=== PATIENT | female | born 1965 | race Caucasian/White ===

== ENCOUNTER → 2023-12-21 10:46 | Outpatient (REF) | payer OTHER, SELFPAY | LOC: WDC 10:46 | PROVIDERS: ATTENDING PHYSICIAN Obstetrics & Gynecology; FAMILY PHYSICIAN Student in an Organized Health Care Education/Training Program | DX: Z12.31 Encounter for screening mammogram for malignant neoplasm of breast (principal) | CPT/HCPCS: 77063; 77067 ==

== ENCOUNTER 2024-04-09 10:14 | Emergency (ER) | payer OTHER, SELFPAY ==
[2024-04-09 10:38] VITALS: BP 127/80
--- NOTE | 2024-04-09 12:17 | ED.GENMED ---
History of Present Illness
General
Chief Complaint: Fall
Source: patient and family
Exam Limitations: none
Time Seen by Provider: 04/09/24 11:18
Nursing documentation reviewed up to this point in time: agreed with
History of Present Illness
History of Present Illness:
58-year-old female past medical history of spinal muscular atrophy presenting to the emergency department today with concerns after a fall yesterday and ongoing discomfort to the right escamilla region. Denies numbness weakness or additional concerns.
Past History
Past History
ED Past Medical History: Other (Muscle weakness of undetermined etiology)
ED Past Surgical History: Orthopedic
Social History
Tobacco: Non-smoker
Review of Systems
Review of Systems
Allergies reviewed?: Yes
All Other Systems: ROS reviewed and negative except as documented in HPI and ROS
Phy Exam
Physical Exam
Physical Exam:
GENERAL: Alert , in no apparent distress
EYE: pupils equal and reactive
NECK: Supple, no significant adenopathy.
ENT: o/p clr, mmm.
CARDIAC: Regular rate and rhythm .
LUNGS: Clear breath sounds bilaterally, no acute respiratory distress, no wheezes/rales/rhonchi
ABDOMEN: Soft, without focal tenderness, no r/g, no cvat
NEUROLOGICAL: Alert and oriented, no focal neuro deficits
SKIN: Warm and dry, skin intact.
MUSCULOSKELETAL: Tenderness to the right lateral proximal escamilla region without overlying skin changes no redness or warmth good range of motion of the ankle and knee. No edema, well perfused.
PSYCH: Normal and appropriate interaction.
Course
Orders/Labs/Results
Orders:
Orders
04/09/24 11:37
CR Leg Tibia/fibula Right 2 Vw Urgent
Comment:
Reason For Exam: right escamilla pain
04/09/24 12:11
CR Ankle - Right Min 3 Views * Urgent
Reason For Exam: WEIGHT BEARING, proximal fib fx
Vital Signs
Initial and Last Documented VS:
Initial Vital Signs
Temp Pulse Resp BP Pulse Ox
100.3 F 87 17 127/80 99
04/09/24 10:38 04/09/24 10:38 04/09/24 10:38 04/09/24 10:38 04/09/24 10:38
Last Documented Vital Signs
Temp Pulse Resp BP Pulse Ox
100.3 F 87 17 127/80 99
04/09/24 10:38 04/09/24 10:38 04/09/24 10:38 04/09/24 10:38 04/09/24 10:38
MDM/Problems Addressed
MDM/Problems Addressed:
58-year-old female presenting to the emergency department today after ground-level fall yesterday. She claims that she fell secondary to her spinal muscular atrophy which does happen quite regularly. Denies any lightheadedness or additional
concerns does have ongoing pain to the right lateral ecsamilla region no numbness weakness or additional concerns or injuries. No head trauma no neck pain. X-ray performed that showed a proximal fibular fracture. Case was discussed with orthopedics
recommending weightbearing as [place]. We additionally got ankle films to ensure no associated ankle injury which was normal. Otherwise weightbearing as tolerated stable for discharge. Given information for follow-up.
*Critical Care Note
Total Time (30-74mins, 75-104mins- exclusive of procedures): Not Applicable
ED Attending Note
-
Portions of this chart may have been created with voice recognition software.� Occasional wrong word or��sound alike� substitutions may have occurred due to the inherent limitations of voice recognition software.
Discharge Plan
Departure
Patient Disposition: Home (Routine Discharge)
Date of Disposition: 04/09/24
Time of Disposition: 12:43
Patient with high blood pressure during this ER visit?: No
Condition: Good
Covid-19: Not Applicable
Discharge Problem:
Fracture of proximal end of fibula
Instructions: Lower leg fracture
Prescriptions:
No Action
Soothe Eye Drops For Contacts
1 drp BOTH EYES DAILYPRN PRN (Reason: dry eyes)
hydrocodone-acetaminophen [Vicodin] 1 EACH tablet
1 ea PO Q4H PRN (Reason: fracture pain) Qty: 20 0RF
Referrals:
Shamir Prieto [Other]
Terence Schultz MD [Family Provider] -
Reji Arroyo MD [Active] - Follow up in 10 days
Activity Restrictions/Additional Instructions:
You came to the emergency department today with concerns of an injury to your right leg. You were found to have a proximal fibula fracture. This is weightbearing as tolerated and gradually increasing activity over the next few weeks. Please rest
ice compress and elevate to help with symptoms and follow with orthopedics for further recommendation.
Interventions
Interventions:
*Risk Screen - Suicide Last Done: 04/09/24 12:26
*General Assessment Last Done: 04/09/24 12:26
*Neglect/Abuse Screening Last Done: 04/09/24 12:26
ED- Fall Risk Assessment Last Done: 04/09/24 12:26
*ED COVID-19 Vaccine History Last Done: 04/09/24 12:26
*Nursing Disposition Last Done: 04/09/24 14:09
ED-Musculoskeletal Assessment Last Done: 04/09/24 12:26
ED- Neurological Assessment Last Done: 04/09/24 12:26
ED-Skin Assessment Last Done: 04/09/24 12:26
Discharge Date and Time
Discharge Date/Time: 04/09/24 14:09
Print Language: SPANISH
== END 2024-04-09 14:09 | disposition home or self-care (01) ==
LOC: EMR 10:14
PROVIDERS: EMERGENCY PHYSICIAN Emergency Medicine; FAMILY PHYSICIAN Family Medicine
DX: S82.831A Other fracture of upper and lower end of right fibula, initial encounter for closed fracture (principal); W18.30XA Fall on same level, unspecified, initial encounter
CPT/HCPCS: 99283; 73590; 73610

== ENCOUNTER → 2024-12-22 10:40 | Outpatient (REF) | payer OTHER, SELFPAY | LOC: WDC 10:40 | PROVIDERS: ATTENDING PHYSICIAN Obstetrics & Gynecology | DX: Z12.31 Encounter for screening mammogram for malignant neoplasm of breast (principal) | CPT/HCPCS: 77063; 77067 ==